=== PATIENT | male | born 1940 | race Caucasian/White ===

== ENCOUNTER 2016-11-23 17:56 | Emergency (ER) | payer OTHER, BC ==
[2016-11-23] MEDS ORDERED: NORMAL SALINE 10 ML SYRINGE FLUSH IVP PRN (18:25)
[2016-11-23] MEDS ORDERED: Sodium Chloride 0.9% 1,000 ML PRIMARY IV ONE (18:25)
[2016-11-23 18:30] VITALS: RESP 19; TEMP 98.4
[2016-11-23] MEDS ORDERED: MORPHINE SULFATE 4 MG/1 ML IVP ONE ×2 (18:30→20:02)
[2016-11-23] MEDS ORDERED: MORPHINE SULFATE 4 MG/1 ML ONE (18:43)
[2016-11-23 18:45] LABS: BASOPHILS # (AUTO) 0.05 10*3/UL; BASOPHILS % (AUTO) 0.3 % (0-1); EOSINOPHILS # (AUTO) 0.21 10*3/UL; EOSINOPHILS % (AUTO) 1.4 % (0-8); HEMATOCRIT 42.7 % (42.0-52.0); HEMOGLOBIN 14.5 g/dL (14.0-18.0); LYMPHOCYTES # (AUTO) 1.28 10*3/uL; MEAN CORPUSCULAR HEMOGLOBIN 31.3 PG (27-31); MEAN CORPUSCULAR VOLUME 92.2 FL (80-90); MEAN PLATELET VOLUME 9.6 FL (7.4-12.2); MONOCYTES # (AUTO) 0.73 10*3/UL (0.3-0.8); NEUTROPHILS # (AUTO) 12.21 10*3/UL; NEUTROPHILS % (AUTO) 84.1 % (50-80); RED BLOOD COUNT 4.63 10^6/uL (4.70-6.10)
[2016-11-23 18:57] LABS: PLATELET MORPHOLOGY COMMENT NORMAL MORPHOLOGY (NORM); RBC MORPHOLOGY COMMENT NORMAL MORPHOLOGY (NORM); WBC MORPHOLOGY COMMENT NORMAL MORPHOLOGY (NORM)
[2016-11-23 19:29] LABS: BLOOD UREA NITROGEN 30 mg/dL (7-22); BUN/CREATININE RATIO 17.64 (6-20); CALCIUM 9.8 mg/dL (8.7-10.7); LIPASE 64 IU/L (23-300); SERUM ALBUMIN 4.4 g/dL (3.5-4.8)
[2016-11-23 20:44] LABS: BILIRUBIN,URINE NEGATIVE (NEG); CLARITY,URINE CLEAR (CLEAR); COLOR,URINE YELLOW; GLUCOSE, URINE (UA) NEGATIVE (NEG); NITRATE,URINE NEGATIVE (NEG); OCCULT BLOOD,URINE LARGE (NEG); PROTEIN,URINE NEGATIVE (NEG); UROBILINOGEN,URINE 0.2 EU/dL (0.2)
[2016-11-23 21:05] LABS: RBC,URINE >100 /hpf; URINE CRYSTALS FEW; URINE SAMPLE TYPE VOIDED SPECIMEN
--- NOTE | 2016-11-23 21:42 | DI ---
CT ABDOMEN/PELVIS W/O CONTRAST,11/23/2016 7:59 PM: Clinical History: Bilateral flank pain. Previous Exam: None at this facility. Findings: Multiple helically acquired CT images are obtained through the abdomen and pelvis without contrast. T here is some subsegmental atelectasis in the lung bases. The liver, gallbladder, spleen, pancreas and adrenals are unremarkable. There is a large 8.2 cm simpl e cyst involving the superior pole the right kidney. There is also a 5.4 cm simple cyst in the interp olar region of the right kidney. There is also a 2.8 cm simple cyst involving the right kidney. There is a normal-appearing appendix. There are also simple cyst noted within the left kidney. Pancreas is unremarkable. There is moderate right hydronephrosis with a 4.5 mm stone within the right mid ureter as it crosses the right common iliac artery. Impression: 4.5 mm stone within the right mid ureter causing moderate right hydronephrosis and perinephric fat st randing.
[2016-11-23] MEDS ORDERED: TAMSULOSIN 0.4 MG CAPSULE PO ONE (21:46)
[2016-11-23] MEDS ORDERED: HYDROcodone-APAP 10 MG-325 MG TABLET PO SCH (22:15)
--- NOTE | 2016-11-24 02:16 | PDOC ---
Abdomen/Flank HPI - General Chief Complaint: Abdomen Pain Stated Complaint: low back pain and abd pain Date Seen by Provider: 11/23/16 Time Seen by Provider: 18:15 Source: POSITIVE: Patient Exam Limitations: POSITIVE: No limitations Nurse's Notes Reviewed & Considered: Yes - History of Present Illness Initial Comments: The patient is a 76-year-old male. He states that for the past 4 hours, approximately, he has had right flank pain and right lower quadrant pain and some associated suprapubic discomfort. She also has some urinary hesitancy. Oh fevers or chills. No nausea, vomiting, diarrhea, melena, hematochezia or hematemesis. No gross hematuria. Body Location Affected: REPORTS: Abdomen, Back (Right flank) Timing: REPORTS: Abrupt Duration: 4-6 hours (Approximately 4 hours) Severity: Moderate Quality: REPORTS: "Pain" Abdominal Pain Onset Location: REPORTS: RLQ, Flank (Right flank) Abdominal Pain Radiation: REPORTS: RLQ Context: REPORTS: None Modifying Factors: improves with: Nothing Associated Symptoms: REPORTS: Back pain (Right flank pain) Similar Symptoms Previously: No Recent Care Received: REPORTS: Denies Any Prior Injuries Related to Current Complaint?: No - Patient Home Medications Home Medications: Home Medications HYDROcodone/APAP 10/325 Tab [[place] 10/325 Tab] 1 tab PO Q4H PRN #20 tab Levothyroxine Sodium 100 mcg PO DAILY 11/23/16 Lisinopril 10 mg PO DAILY 11/23/16 Tamsulosin HCl [Flomax] 0.4 mg PO DAILY #15 cap 11/23/16 - Patient Allergies Allergies/Adverse Reactions: Allergies Allergy/AdvReac Type Severity Reaction Status Date / Time aspirin Allergy Intermediate RASH Verified 11/23/16 18:01 Past Medical History - lucie FOWLER History: Denies History Cardiovascular History: Hypertension Respiratory History: Denies History Gastrointestinal History: Denies History Genitourinary History: Denies History Endocrine History: Hypothyroidism Musculoskeletal History: Denies History Neurological History: Denies History Blood Disorders: Denies History Psychiatric History: Denies History Cancer History: Other (please comment) Cancer Treatment / Date(s) of Treatment: RADIATION IN 2016 In Past Year Been Physically Harmed or Verbally Threatened: No History of MDRO: Unknown Tobacco Use: Never Smoker Alcohol Use: None Substance Use Type: None Previous Surgical History: No Significant Family History: No pertinent family hx Past Medical History Reviewed: Reviewed - No Changes ROS - Limitations ROS Limitations: No Limitations Constitution: REPORTS: Denies Symptoms Cardiovascular: REPORTS: Denies Cardiac Symptoms Respiratory: REPORTS: Denies Resp Symptoms Neurological: REPORTS: Denies Neuro Symptoms Gastrointestinal: REPORTS: Abdominal Pain Endocrine: REPORTS: Denies Symptoms Musculoskeletal: REPORTS: Denies MS Symptoms Genitourinary: REPORTS: Flank Pain (Right), Difficulty Urinating (Urinary hesitancy) Eyes: REPORTS: Denies Symptoms ENT: REPORTS: Denies Symptoms Skin: REPORTS: Denies Skin Symptoms Lympathic: REPORTS: Denies Lympathic Symptoms Immunologic: POSITIVE: Denies Symptoms Psychiatric: POSITIVE: Denies Psych Symptoms Abdominal/Flank Pain PE - General Appearance General Appearance: POSITIVE: Alert, Cooperative, No Acute Distress, No Evidence of Trauma - Neck Neck: POSITIVE: Normal Inspection, No Apparent Injury - Respiratory Respiratory: POSITIVE: No Respiratory Distress, Breath Sounds Normal, Chest Non- Tender - Cardiovascular Cardiovascular: POSITIVE: Regular Rate and Rhythm, Heart Sounds Normal, Equal Pulses, Strong Pulses Peripheral Pulses: Radial (R): 2+, Radial (L): 2+ - Chest Chest: POSITIVE: Non Tender - Abdomen Abdomen: Soft: (All Quadrants), Normal Bowel Sounds: (All Quadrants), Denies Tenderness: (All Quadrants), No Splenomegaly: (All Quadrants), No Hepatomegaly: (All Quadrants), No Guarding: (All Quadrants), No Rebound: (All Quadrants), No Palpable Pulse: (All Quadrants), No Palpabale Mass: (All Quadrants), No Distention: (All Quadrants), No Rigidity: (All Quadrants) - Back Back: POSITIVE: CVA Tenderness (R) - Skin Skin: POSITIVE: Intact, Normal For Race, Warm, Dry, No Rash - Extremities Extremity: Non-Tender: (All Extremities), Normal ROM: (All Extremities), Normal Inspection: (All Extremities) - Neurological Neurological: POSITIVE: Oriented X3, event marketing manager Normal As Tested, Motor Normal, Sensation Normal, 5, 6 - Psychological Psychiatric: POSITIVE: Affect Appropriate, Mood Appropriate Images - Complete Complete: 1 - Area of described flank pain 2 - Area of discomfort Abdomen Progress - Results Reviewed by me Xrays/CTs/US Reviewed by me: Yes Discussed with Radiologist: Yes Radiology Findings: CT scan abdomen and pelvis without contrast shows a 4.5 mm ureterolith in the right mid ureter with some associated hydronephrosis Lab Results Reviewed: Yes Lab Results:: Laboratory Results 11/23/16 11/23/16 Range/Units 18:43 20:41 WBC 14.54 H (4.8-10.8) 10^3/uL RBC 4.63 L (4.70-6.10) 10^6/uL Hgb 14.5 (14.0-18.0) g/dL Hct 42.7 (42.0-52.0) % MCV 92.2 H (80-90) FL MCH 31.3 H (27-31) PG MCHC 34.0 (33-37) g/dL RDW Std Deviation 45.5 (39-50) fL RDW Coeff of Lexa 13.7 (11.5-14.5) % Plt Count 235 (140-350) 10*3/uL MPV 9.6 (7.4-12.2) FL Immature Gran % (Auto) 0.4 (0-5) % Neut % (Auto) 84.1 H (50-80) % Lymph % (Auto) 8.8 L (10-50) % Benzie % (Auto) 5.0 (5-15) % Eos % (Auto) 1.4 (0-8) % Baso % (Auto) 0.3 (0-1) % Immature Gran # (Auto) 0.06 10*3/UL Neut # (Auto) 12.21 10*3/UL Lymph # (Auto) 1.28 10*3/uL Benzie # (Auto) 0.73 (0.3-0.8) 10*3/UL Eos # (Auto) 0.21 10*3/UL Baso # (Auto) 0.05 10*3/UL WBC Morphology Comment Normal morphology (NORM) Plt Morphology Comment Normal morphology (NORM) RBC Morph Comment Normal morphology (NORM) Sodium 140 (135-145) meq/L Potassium 4.7 (3.8-5.2) meq/L Chloride 108 (98-112) meq/L Carbon Dioxide 22 L (23-33) meq/L Anion Gap 10 (5-20) BUN 30 H (7-22) mg/dL Creatinine 1.7 H (0.70-1.50) mg/dL Estimated GFR Final Touch Up Painter BUN/Creatinine Ratio 17.64 (6-20) Glucose 115 H (78-110) mg/dL Calculated Osmolality 296.0 H (267-292) mOsm/kg Calcium 9.8 (8.7-10.7) mg/dL Total Bilirubin 1.0 (0.3-1.2) mg/dL AST 34 (21-57) IU/L ALT 38 (21-72) IU/L Alkaline Phosphatase 48 (38-126) IU/L Total Protein 7.3 (6.1-8.0) g/dL Albumin 4.4 (3.5-4.8) g/dL Globulin 3.0 (2.50-4.10) g/dL Albumin/Globulin Ratio 1.40 (1.3-2.0) mg/g Amylase 64 (30-110) U/L Lipase 64 (23-300) IU/L Ur Collection Type Voided specimen Urine Color Yellow Urine Clarity Clear (CLEAR) Urine pH 5.0 (5.0-8.5) Ur Specific [place] 1.020 (1.005-1.030) Urine Protein Negative (NEG) mg/dl Urine Glucose (UA) Negative (NEG) mg/dL Urine Ketones 15 (NEG) Urine Occult Blood Large H (NEG) Urine Nitrate Negative (NEG) Urine Bilirubin Negative (NEG) Urine Urobilinogen 0.2 (0.2) EU/dL Ur Leukocyte Esterase Negative (NEG) Urine RBC >100 (NONE) /hpf Urine WBC None (NONE) Ur Squamous Epith Cells None (NONE) Ur Renal Epithelial Cell None (NONE) Urine Crystals Few Urine Bacteria None (NONE) Urine Casts None (NONE) Urine Mucus None (NONE) Urine Trichomonas None (NONE) Urine Yeast None (NONE) Ur Culture Indicated? Culture not set - Patient's Progress Pain Medication Addressed: POSITIVE: Yes (Morphine sulfate) School/Work Release Addressed: POSITIVE: Not Applicable Re-examine Time: 21:50 Re-Examine Comment: Pain resolved on discharge. Diagnosis discussed with patient and his son and . Status: POSITIVE: Improved, Re-Examined - Consult Counseled: POSITIVE: Patient, Family, RE: Lab Results, RE: Radiology Results, RE : DX, RE: Need for F/U Patient Care Time - Estimated PCT Patient Care Time (In Minutes): 50 Vital Signs - VS Reviewed Vital Signs Reviewed: Yes Discharge Clinical Impression: Renal colic on right side Discharge Disposition: Discharged to Home Condition: Stable Prescriptions / Orders: Tamsulosin HCl [Flomax] 0.4 mg PO DAILY #15 cap HYDROcodone/APAP 10/325 Tab [[place] 10/325 Tab] 1 tab PO Q4H PRN #20 tab PRN Reason: Pain Patient Instructions Given at Discharge: Ureteral Stones (ED) Additional Instructions: You are passing a kidney stone on the right. Please increase fluids. Every time you urinate, please urinate through a strainer and check for the passage of a stone. Flomax once daily. Hydrocodone/APAP, one every 4 hours as necessary for pain. Follow-up with urology in [place] if you haven't passed the stone within 7 days. Return any time if you develop fevers, chills, or if condition worsens in any way whatsoever. Follow Up With: NONE,NONE [Primary Care Provider] - (Instructions as above. Follow-up with urology in [place] if you haven't passed a stone within 7 days. Return anytime if condition worsens in any way whatsoever.)
== END 2016-11-23 22:22 | disposition home or self-care (01) ==
LOC: ER 17:56
DX: N23 Unspecified renal colic (principal); R39.11 Hesitancy of micturition; R10.11 Right upper quadrant pain; M54.89 Other dorsalgia; R10.31 Right lower quadrant pain
CPT/HCPCS: 74176; 80053; 81001; 81003; 82150; 83690; 85025; 96374; 96376; 99283 ×2; J2270; J7030